=== PATIENT | male | born 1965 | race Caucasian/White ===

== ENCOUNTER 2019-05-08 17:02 | Emergency (ER) | payer MEDICAID ==
[2019-05-08 20:15] LABS: ABS Eosinophils 0.1 10^3/ul (0-0.6); ABS Lymphocytes 2.8 10^3/ul (1.0-4.8); ABS Monocytes 0.4 10^3/ul (0-0.8); ABS Neutrophils 4.3 10^3/ul (1.5-7.7); Eosinophil % 1.2 %; Hematocrit 37 % (42-52); Hemoglobin 12.6 g/dL (14.0-18.0); Lymphocyte % 36.7 %; Mean Corpuscular HGB Conc 34 g/dL (31-36); Mean Corpuscular Hemoglobin 30 pg (27-31); Mean Corpuscular Volume 86 fL (80-94); Mean Platelet Volume 6.6 fL (7.4-10.4); Nucleated Red Blood Cells % 0.1; Platelet Count 304 10^3/uL (150-450); Red Blood Count 4.26 10^6 /uL (4.18-5.48); Red Cell Distribution Width 15 % (10-15); White Blood Count 7.7 10^3/uL (3.5-10.8)
[2019-05-08 20:31] LABS: ALT 22 U/L (7-52); AST 25 U/L (13-39); Albumin 4.6 g/dL (3.2-5.2); Albumin/Globulin Ratio 1.2 (1-3); Alkaline Phosphatase 84 U/L (34-104); Anion Gap 8 mmol/L (2-11); BUN/Creatinine Ratio 26.7 (8-20); Blood Urea Nitrogen 27 mg/dL (6-24); C Reactive Protein < 1.00 mg/L (<8.01); CO2 Carbon Dioxide 26 mmol/L (22-32); Calcium 10.3 mg/dL (8.6-10.3); Chloride 102 mmol/L (101-111); EGFR African American 94.2 (>60); EGFR Non-African American 77.9 (>60); Globulin 3.7 g/dL (2-4); Glucose 108 mg/dL (70-100); Potassium 4.7 mmol/L (3.5-5.0); Sodium 136 mmol/L (135-145); Total Protein 8.3 g/dL (6.4-8.9)
--- NOTE | 2019-05-08 20:44 | ED ---
Abdominal Pain/Male - HPI Summary HPI Summary: 53-year-old male who currently resides at [facility] presents with complaints of right upper quadrant pain for the past month. States pain is mild but constant. Describes it as "pressure". States he does notices that pain worsens after eating especially acidic foods. Associated with intermittent nausea. Denies fever, chills, chest pain, shortness of breath, vomiting, diarrhea, blood in stool, or melena. - History of Current Complaint Chief Complaint: EDAbdPain Stated Complaint: NAUSEA/ABD AND BACK PAIN PER PT Time Seen by Provider: 05/08/19 20:24 Hx Obtained From: Patient Pain Intensity: 6 - Allergies/Home Medications Allergies/Adverse Reactions: Allergies Allergy/AdvReac Type Severity Reaction Status Date / Time No Known Allergies Allergy Verified 05/08/19 20:57 Home Medications: Home Medications Acetaminophen 650 mg PO Q6H PRN 05/08/19 [History Confirmed 05/08/19] Allopurinol [Zyloprim 300 MG TAB] 300 mg PO DAILY 05/08/19 [History Confirmed ] Amlodipine Besylate [Norvasc] 5 mg PO DAILY 05/08/19 [History Confirmed 05/08/19 ] Aspirin 325 mg PO DAILY 05/08/19 [History Confirmed 05/08/19] Benazepril HCl 10 mg PO DAILY 05/08/19 [History Confirmed 05/08/19] Bismuth Subsalicylate [Bismuth] 1 tab PO Q1HR PRN 05/08/19 [History Confirmed ] Buprenorphine HCl/Naloxone HCl [Suboxone 12 mg-3 mg Sl Film] 1 film SL DAILY [History Confirmed 05/08/19] Calcium Carbonate CHEW TAB* [Tums*] 1 - 2 tab PO SEE INSTRUCTIONS 05/08/19 [ History Confirmed 05/08/19] Ciclopirox [Penlac] 1 applic TOPICAL DAILY 05/08/19 [History Confirmed 05/08/19] Clindamycin Phosphate 1 % TOPICAL 1 applic TOPICAL BID 05/08/19 [History Confirmed 05/08/19] Docusate Sodium 100 mg PO BID PRN 05/08/19 [History Confirmed 05/08/19] Ibuprofen 400 mg PO Q6H PRN 05/08/19 [History Confirmed 05/08/19] Magnesium Hydroxide LIQ* [Milk of Magnesia LIQ*] 30 ml PO DAILY PRN 05/08/19 [ History Confirmed 05/08/19] Multivitamins/Minerals TAB* [Theragran/minerals TAB*] 1 tab PO DAILY 05/08/19 [ History Confirmed 05/08/19] Naloxone Nasal Bethune* [Narcan Nasal Bethune] 2 spray BOTH NARES SEE INSTRUCTIONS 05/08/19 [History Confirmed 05/08/19] Nicotine PATCH 14 MG/24 HR* 1 patch TRANSDERM DAILY 05/08/19 [History Confirmed 05/08/19] Nicotine Polacrilex 4 mg PO SEE INSTRUCTIONS 05/08/19 [History Confirmed ] Omeprazole 40 mg PO DAILY 05/08/19 [History Confirmed 05/08/19] PARoxetine HCL TAB* [Paxil TAB*] 40 mg PO DAILY 05/08/19 [History Confirmed ] Polyethylene Glycol 3350* [Miralax*] 1 packet PO DAILY PRN 05/08/19 [History Confirmed 05/08/19] Sodium Chloride [Saline Nose Bethune] 1 spray BOTH NARES DAILY PRN 05/08/19 [ History Confirmed 05/08/19] Topiramate 100 mg PO BEDTIME 05/08/19 [History Confirmed 05/08/19] guaiFENesin [Mucinex] 600 mg PO Q12H PRN 05/08/19 [History Confirmed 05/08/19] PMH/Surg Hx/FS Hx/Imm Hx Cardiovascular History: Reports: Hx Hypertension GI History: Reports: Hx Gastroesophageal Reflux Disease Denies: Hx Gall Bladder Disease Musculoskeletal History: Reports: Hx Gout Psychiatric History: Reports: Hx Depression, Hx Substance Abuse Infectious Disease History: No Infectious Disease History: Denies: Traveled Outside the [place] in Last 30 Days - Family History Known Family History: Positive: Non-Contributory - Social History Occupation: Unemployed Lives: [facility] Review of Systems Negative: Fever, Chills ENT: Negative Negative: Palpitations, Chest Pain Negative: Shortness Of Breath, Cough Positive: Abdominal Pain, Nausea. Negative: Vomiting, Diarrhea Negative: dysuria, frequency, flank pain, hematuria, urgency Musculoskeletal: Negative Skin: Negative Neurological: Negative All Other Systems Reviewed And Are Negative: No Physical Exam - Summary Physical Exam Summary: GENERAL APPEARANCE: Well developed, well nourished, alert and cooperative, and appears to be in no acute distress. CARDIAC: Normal S1 and S2. No S3, S4 or murmurs. Rhythm is regular. There is no peripheral edema, cyanosis or pallor. Extremities are warm and well perfused. Capillary refill is less than 2 seconds. Peripheral pulses intact. LUNGS: Clear to auscultation without rales, rhonchi, wheezing or diminished breath sounds. ABDOMEN: Positive bowel sounds. Soft, nondistended. Mild RUQ tenderness without guarding or rebound. No masses or hepatosplenomegally. MUSKULOSKELETAL: ROM intact to all extremities. No joint erythema or tenderness. Normal muscular development. Normal gait. SKIN: Skin normal color, texture and turgor with no lesions or eruptions. Triage Information Reviewed: Yes Vital Signs On Initial Exam: Initial Vitals Temp Pulse Resp BP Pulse Ox 97.9 F 73 16 112/75 98 05/08/19 17:04 05/08/19 17:04 05/08/19 17:04 05/08/19 17:04 05/08/19 17:04 Vital Signs Reviewed: Yes Diagnostics - Vital Signs Vital Signs Temp Pulse Resp BP Pulse Ox 05/08/19 18:43 98.1 F 69 18 110/58 97 05/08/19 17:04 97.9 F 73 16 112/75 98 - Laboratory Lab Results: Lab Results 05/08/19 05/08/19 Range/Units 20:08 20:08 WBC 7.7 (3.5-10.8) 10^3/uL RBC 4.26 (4.18-5.48) 10^6 /uL Hgb 12.6 L (14.0-18.0) g/dL Hct 37 L (42-52) % MCV 86 (80-94) fL MCH 30 (27-31) pg MCHC 34 (31-36) g/dL RDW 15 (10-15) % Plt Count 304 (150-450) 10^3/uL MPV 6.6 L (7.4-10.4) fL Neut % (Auto) 55.9 % Lymph % (Auto) 36.7 % Woodward % (Auto) 5.7 % Eos % (Auto) 1.2 % Baso % (Auto) 0.5 % Absolute Neuts (auto) 4.3 (1.5-7.7) 10^3/ul Absolute Lymphs (auto) 2.8 (1.0-4.8) 10^3/ul Absolute Monos (auto) 0.4 (0-0.8) 10^3/ul Absolute Eos (auto) 0.1 (0-0.6) 10^3/ul Absolute Basos (auto) 0.0 (0-0.2) 10^3/ul Absolute Nucleated RBC 0.0 10^3/ul Nucleated RBC % 0.1 Sodium 136 (135-145) mmol/L Potassium 4.7 (3.5-5.0) mmol/L Chloride 102 (101-111) mmol/L Carbon Dioxide 26 (22-32) mmol/L Anion Gap 8 (2-11) mmol/L BUN 27 H (6-24) mg/dL Creatinine 1.01 (0.67-1.17) mg/dL Est GFR ( Amer) 94.2 (>60) Est GFR (Non-Af Amer) 77.9 (>60) BUN/Creatinine Ratio 26.7 H (8-20) Glucose 108 H (70-100) mg/dL Calcium 10.3 (8.6-10.3) mg/dL Total Bilirubin 0.40 (0.2-1.0) mg/dL AST 25 (13-39) U/L ALT 22 (7-52) U/L Alkaline Phosphatase 84 (34-104) U/L C-Reactive Protein < 1.00 (<8.01) mg/L Total Protein 8.3 (6.4-8.9) g/dL Albumin 4.6 (3.2-5.2) g/dL Globulin 3.7 (2-4) g/dL Albumin/Globulin Ratio 1.2 (1-3) Lipase 47 (11.0-82.0) U/L Result Diagrams: 05/08/19 20:08 05/08/19 20:08 Lab Statement: Any lab studies that have been ordered have been reviewed, and results considered in the medical decision making process. - Ultrasound No standard instances Ultrasound Interpretation Completed By: Radiologist Summary of Ultrasound Findings: Order Information: US GALL BLADDER. Accession Number: [id number]. CPT: 30128. EXAM: US Abdomen Limited, Right Upper Quadrant. EXAM DATE/TIME: 05/08/2019 9:05 PM. CLINICAL HISTORY: 53 years old , male; Abdominal pain; Localized; Right upper quadrant (ruq);. Additional info : Ruq pain. TECHNIQUE: Imaging protocol: Real-time ultrasound of the abdomen with image. documentation. Examination was focused on the right upper quadrant. COMPARISON: No relevant prior studies available. FINDINGS: Liver: The liver is normal in size and echotexture and measures 17 cm. Gallbladder: The gallbladder wall is borderline thickened and there is a very. small amount of sludge in it. No focal tenderness. No pericholecystic fluid. Common bile duct: CBD is mildly dilated measuring up to 9 mm. Pancreas: Visualized pancreas is unremarkable. Right kidney: A few small cysts noted in the right kidney. No hydronephrosis. IMPRESSION: No definite gallstones although there is mild wall thickening. The CBD is. mildly dilated. Abdominal Pain Male Course/Dx - Course Course Of Treatment: 53-year-old male who currently resides at [facility] presents with complaints of right upper quadrant pain for the past month. States pain is mild but constant. Describes it as "pressure". States he does notices that pain worsens after eating especially acidic foods. Associated with intermittent nausea. Denies fever, chills, chest pain, shortness of breath, vomiting, diarrhea, blood in stool, or melena. Afebrile. Vital signs stable. Patient had some mild right upper quadrant tenderness with palpation without guarding or rebound an otherwise unremarkable exam. CBC showed some mild anemia otherwise stable, CMP showed a mildly elevated BUN/creatinine otherwise unremarkable, and urine was negative. The ultrasound showed a little bit of sludge in the gallbladder, mild thickening of the gallbladder wall, and a dilated common bile duct but no stones were visualized. There is an incidental finding of a midpole anechoic cystic lesion to the right kidney. These results were reviewed with the patient. Based on his lab work and exam I do not feel that this represents an acute abdomen at this time therefore I'm recommending him follow-up with gastroenterology in the next 3-5 days for further evaluation of the gallbladder. I also referred him to the [facility] for follow-up on the incidental right kidney cyst finding. Anticipatory guidance and warning symptoms were reviewed with the patient. Verbalizes understanding and agrees with plan of care. - Diagnoses Differential Diagnosis/HQI/PQRI: Gall Bladder Disease, Hepatitis, Pancreatitis Provider Diagnoses: Gall bladder disease Discharge - Sign-Out/Discharge Documenting (check all that apply): Patient Departure Patient Received Moderate/Deep Sedation with Procedure: No - Discharge Plan Condition: Stable Disposition: HOME Patient Education Materials: Biliary Colic (ED), Kidney Cyst (ED) Referrals: No Primary Care Phys,NOPCP [Primary Care Provider] - Terell Wilson DO [Doctor of Osteopathy] - 3 Days (Call for an appointment.) [facility] [Outside] - 7 Days (Call for appointment to follow up on the kidney cyst that was seen on your ultrasound.) Additional Instructions: The lab work that was performed in the emergency room tonight was stable. Your ultrasound showed a scant amount of sludge, some thickening of the gallbladder wall, and enlargement of the common bile duct which is suggestive of some gallbladder disease however based on your labs and exam this does not require emergent surgical intervention. There was also a small cyst noted to your right kidney during the ultrasound. You will need to follow up outpatient for further evaluation of this finding. I have given you the contact information for the [facility] here at [facility]. Call to make an appointment. Try to avoid spicy or fatty foods. Follow-up with gastroenterology in the next 3-5 days for further evaluation of your gallbladder. Return to the emergency room if you develop fever greater than 100.5 F, have worsening abdominal pain, persistent vomiting, or any worsening of symptoms. - Billing Disposition and Condition Condition: STABLE Disposition: Home
[2019-05-08 21:10] LABS: Urine Appearance Clear; Urine Bilirubin Negative (Negative); Urine Blood Negative (Negative); Urine Color Yellow; Urine Glucose Negative (Negative); Urine Ketones Negative (Negative); Urine Nitrite Negative (Negative); Urine Protein Negative (Negative); Urine Specific Gravity 1.013 (1.010-1.030); Urine Urobilinogen Negative (Negative)
[2019-05-08 22:40] VITALS: BP 128/75
== END 2019-05-08 22:37 | disposition home or self-care (01) ==
LOC: ED 17:02
DX: K82.9 Disease of gallbladder, unspecified (principal); I10 Essential (primary) hypertension; Z79.899 Other long term (current) drug therapy
CPT/HCPCS: 36415; 76705; 80053; 81003; 83690; 85025; 86140; 99283